=== PATIENT | male | born 1995 | race Native Hawaiian/Other Pacific Islander ===

== ENCOUNTER 2016-04-05 12:05 | Emergency (ER) | payer OTHER ==
[~2016-04-05] VITALS: Ht 180.3 cm; Wt 72.6 kg
[2016-04-05 13:00] LABS: PLATELET COUNT 200 K/uL (142-355)
[2016-04-05 13:08] LABS: POTASSIUM 3.8 mmol/L (3.6-5.2); SODIUM 135 mmol/L (136-145)
[2016-04-05 14:42] VITALS: BP 112/72; TEMP 98.1
== END 2016-04-05 14:43 | disposition home or self-care (01) ==
LOC: ED 12:05
DX: R09.1 Pleurisy (principal); J47.9 Bronchiectasis, uncomplicated; F12.10 Cannabis abuse, uncomplicated
CPT/HCPCS: 36415; 80053; 80307; 81000; 85027; 99283; G0479

== ENCOUNTER 2017-09-01 19:36 | Emergency (ER) | payer OTHER ==
[~2017-09-01] VITALS: Ht 188 cm; Wt 72.6 kg
[2017-09-01 19:47] VITALS: TEMP 99
[2017-09-01 21:24] VITALS: BP 136/78
== END 2017-09-01 21:24 | disposition home or self-care (01) ==
LOC: ED 19:36
DX: S93.492A Sprain of other ligament of left ankle, initial encounter (principal); X50.1XXA Overexertion from prolonged static or awkward postures, initial encounter; Y92.89 Other specified places as the place of occurrence of the external cause
CPT/HCPCS: 99283; J1885

== ENCOUNTER 2017-09-24 22:18 | Emergency (ER) | payer OTHER ==
[~2017-09-24] VITALS: Ht 188 cm; Wt 72.6 kg
[2017-09-25 01:06] VITALS: BP 118/76; TEMP 98.4
== END 2017-09-25 01:06 | disposition home or self-care (01) ==
LOC: ED 22:18
DX: S06.9X9A Unspecified intracranial injury with loss of consciousness of unspecified duration, initial encounter (principal); S09.8XXA Other specified injuries of head, initial encounter; W11.XXXA Fall on and from ladder, initial encounter; Y93.89 Activity, other specified; Y92.89 Other specified places as the place of occurrence of the external cause; S16.1XXA Strain of muscle, fascia and tendon at neck level, initial encounter; R51 Headache
CPT/HCPCS: 96372; 99283; J1885

== ENCOUNTER 2017-10-16 22:45 | Emergency (ER) | payer OTHER ==
[~2017-10-16] VITALS: Ht 185.4 cm; Wt 68.0 kg
[2017-10-16 22:30] VITALS: BP 126/74; TEMP 98.2
== END 2017-10-17 00:10 | disposition home or self-care (01) ==
LOC: ED 22:45
PROC: 2W3RX1Z Immobilization of Left Lower Leg using Splint (ICD-10-PCS; principal; 2017-10-16)
DX: S93.402A Sprain of unspecified ligament of left ankle, initial encounter (principal); X50.1XXA Overexertion from prolonged static or awkward postures, initial encounter; Y92.098 Other place in other non-institutional residence as the place of occurrence of the external cause
CPT/HCPCS: 99283; J1885; L4350

== ENCOUNTER 2018-03-23 19:19 | Emergency (ER) | payer OTHER ==
[~2018-03-23] VITALS: Ht 180.3 cm; Wt 68.0 kg
[2018-03-23 21:40] LABS: PLATELET COUNT 212 K/uL (142-355)
[2018-03-23 21:48] LABS: POTASSIUM 3.8 mmol/L (3.6-5.2)
[2018-03-23 23:03] VITALS: BP 127/56; TEMP 98.1
== END 2018-03-23 23:06 | disposition home or self-care (01) ==
LOC: ED 19:19
PROVIDERS: Internal Medicine
DX: R10.31 Right lower quadrant pain (principal); M25.561 Pain in right knee; W17.89XA Other fall from one level to another, initial encounter
CPT/HCPCS: 36415; 80053; 85027; 96374; 99284; J1885

== ENCOUNTER 2018-05-09 18:38 | Emergency (ER) | payer OTHER ==
[~2018-05-09] VITALS: Ht 188 cm; Wt 81.6 kg
[2018-05-09 23:08] VITALS: BP 118/65; TEMP 98.5
== END 2018-05-09 23:10 | disposition home or self-care (01) ==
LOC: ED 18:38
DX: K08.89 Other specified disorders of teeth and supporting structures (principal); R46.0 Very low level of personal hygiene; H92.02 Otalgia, left ear
CPT/HCPCS: 99281

== ENCOUNTER 2018-07-17 11:45 | Emergency (ER) | payer OTHER ==
[~2018-07-17] VITALS: Ht 188 cm; Wt 81.6 kg
[2018-07-17 13:10] VITALS: BP 119/74; TEMP 97.6
== END 2018-07-17 13:10 | disposition home or self-care (01) ==
LOC: ED 11:45
DX: K08.89 Other specified disorders of teeth and supporting structures (principal); K02.9 Dental caries, unspecified; G43.909 Migraine, unspecified, not intractable, without status migrainosus
CPT/HCPCS: 96372; 99282; J1885

== ENCOUNTER 2018-09-16 00:35 | Emergency (ER) | payer OTHER ==
[~2018-09-16] VITALS: Ht 188 cm; Wt 72.6 kg
[2018-09-16 00:50] VITALS: TEMP 97.5
[2018-09-16 05:18] VITALS: BP 96/51
== END 2018-09-16 05:21 | disposition short-term general hospital (02) ==
LOC: ED 00:35
DX: S12.490A Other displaced fracture of fifth cervical vertebra, initial encounter for closed fracture (principal); W18.09XA Striking against other object with subsequent fall, initial encounter; Y93.18 Activity, surfing, windsurfing and boogie boarding; Y92.89 Other specified places as the place of occurrence of the external cause
CPT/HCPCS: 96360; 99285

== ENCOUNTER 2018-09-16 05:22 | Outpatient (CLI) | payer OTHER | END 2018-09-16 06:44 | disposition short-term general hospital (02) | LOC: AMB 05:22 | DX: M54.2 Cervicalgia (principal); S12.490A Other displaced fracture of fifth cervical vertebra, initial encounter for closed fracture; W17.89XA Other fall from one level to another, initial encounter; W18.09XA Striking against other object with subsequent fall, initial encounter; Y93.89 Activity, other specified; Y92.89 Other specified places as the place of occurrence of the external cause; F10.129 Alcohol abuse with intoxication, unspecified | CPT/HCPCS: A0425; A0429 ==

== ENCOUNTER 2019-02-17 00:28 | Emergency (ER) | payer OTHER ==
[~2019-02-17] VITALS: Ht 185.4 cm; Wt 74.8 kg
[2019-02-17] MEDS ORDERED: NEURONTIN 100M100 MG PO (01:05)
[2019-02-17] MEDS ORDERED: ROBAXIN500 M1 PO (01:05)
[2019-02-17 01:29] LABS: PLATELET COUNT 187 K/uL (142-355)
[2019-02-17 01:36] LABS: POTASSIUM 3.6 mmol/L (3.6-5.2)
[2019-02-17 03:40] VITALS: BP 128/84; TEMP 98.1
== END 2019-02-17 03:40 | disposition home or self-care (01) ==
LOC: ED 00:28
PROVIDERS: Family Medicine
DX: K29.60 Other gastritis without bleeding (principal); K02.9 Dental caries, unspecified
CPT/HCPCS: 80053; 80307; 81000; 82150; 83690; 85027; 93005; 96374; 99284; J3490; Q9963